=== PATIENT | female | born 1955 | race Asian ===

== ENCOUNTER 2017-05-03 08:05 | Day surgery (SDC) | payer MEDICARE ==
[~2017-05-03] VITALS: Ht 158.8 cm; Wt 43.6 kg
[~2017-05-03 08:05] MED LIST: LORazepam 2 MG/ML VIAL IVP PRN; SODIUM CHLORIDE 0.9% 1,000 ML IV ONE
[2017-05-03] MEDS ORDERED: FentaNYL CITRATE-PF 100 MCG/2 ML VIAL ONE (08:52)
[2017-05-03] MEDS ORDERED: MIDAZOLAM HCL 2 MG/2 ML VIAL ONE (08:52)
[2017-05-03 08:53] LABS: ALANINE AMINOTRANSFERASE 19 U/L (12-78); ALBUMIN 3.6 g/dL (3.4-5.0); ANION GAP 12 mmol/L (8-16); ASPARTATE AMINOTRANSFERASE 14 U/L (15-37); BILIRUBIN,TOTAL 0.5 mg/dL (0.1-1.0); CARBON DIOXIDE 26 mmol/L (22-29); CHLORIDE 103 mmol/L (98-107); CREATININE 0.73 mg/dL (0.60-1.30); GLOMERULAR FILTR. RATE CALC > 60 mL/min (>60); POTASSIUM 3.6 mmol/L (3.5-5.1); SODIUM SERUM 141 mmol/L (136-145); TOTAL PROTEIN, SERUM 7.1 g/dL (6.4-8.2); UREA NITROGEN, BLOOD 12 mg/dL (7-18)
[2017-05-03] MEDS ORDERED: LIDOCAINE HCL/PF 1% 30 ML VIAL ONE (08:53)
[2017-05-03] MEDS ORDERED: HEPARIN SODIUM 1000 UNITS/NS 500 ML ONE ×2 (08:53→11:05)
[2017-05-03] MEDS ORDERED: IODIXANOL 320 MG/ML 50 ML VIAL ONE ×3 (08:54→11:58)
[2017-05-03 08:59] LABS: BASOPHILS # (AUTO) 0.04 K/uL (0.00-0.20); BASOPHILS % (AUTO) 0.4 % (0.0-2.0); EOSINOPHILS # (AUTO) 0.02 K/uL (0.00-0.70); EOSINOPHILS % (AUTO) 0.22 % (1.0-6.0); HEMATOCRIT 37.6 % (36-46); HEMOGLOBIN 12.7 g/dL (12.0-16.0); LYMPHOCYTES # (AUTO) 1.4 K/uL (1.0-4.8); MEAN CORPUSCULAR HEMOGLOBIN 31.4 pg (26.0-34.0); MEAN CORPUSCULAR HGB CONC 33.7 G/dL (31.0-37.0); MEAN CORPUSCULAR VOLUME 93 fL (80-100); MONOCYTES # (AUTO) 0.7 K/uL (0.1-1.0); MONOCYTES % (AUTO) 6.1 % (2.0-9.0); NEUTROPHILS # (AUTO) 8.8 K/uL (1.8-7.7); NEUTROPHILS % (AUTO) 80.4 % (40.0-70.0); PLATELET COUNT (AUTO) 331 K/uL (150-450); RED BLOOD CELL COUNT(AUTO) 4.02 MIL/uL (4.00-5.20); RED CELL DISTRIBUTION WIDTH 12.4 % (11.5-14.5); WHITE BLOOD COUNT (AUTO) 10.9 K/uL (4.5-11.0)
[2017-05-03 09:15] VITALS: BP 121/60
[2017-05-03] MEDS ORDERED: NITROGLYCERIN 50 MG/D5% WATER 250 ML ONE (09:28)
[2017-05-03] MEDS ORDERED: VERAPAMIL HCL 2.5 MG/ML 2 ML VIAL ONE (09:28)
[2017-05-03] MEDS ORDERED: MAGNESIUM SULFATE 2 GM, MVI, ADULT NO.1 WITH VIT K 10 ML, THIAMINE HCL 100 MG, FOLIC AC... IV ONE ×5 (09:30)
[2017-05-03] MEDS ORDERED: VANCOMYCIN HCL 1 GM/D5% WATER 200 ML IV ONE (09:30)
[2017-05-03] MEDS ORDERED: HEPARIN SODIUM 1000 UNITS/NS 500 ML IV ONE (10:30)
[2017-05-03] MEDS ORDERED: MIDAZOLAM HCL 2 MG/2 ML VIAL IVP ONE (10:30)
[2017-05-03] MEDS ORDERED: IODIXANOL 320 MG/ML 50 ML VIAL IARTER ONE (10:30)
[2017-05-03] MEDS ORDERED: FentaNYL CITRATE-PF 100 MCG/2 ML VIAL IVP ONE (10:30)
[2017-05-03] MEDS ORDERED: LIDOCAINE HCL/PF 1% 30 ML VIAL INJ ONE (10:30)
[2017-05-03] MEDS ORDERED: HEPARIN SODIUM,PORCINE 1,000 UNITS/ML 10 ML VIAL IARTER ONE ×2 (10:45→11:00)
[2017-05-03] MEDS ORDERED: VERAPAMIL HCL 2.5 MG/ML 2 ML VIAL IARTER ONE (10:45)
[2017-05-03] MEDS ORDERED: NITROGLYCERIN/D5W 50 MG/250 ML IV BOTTLE IARTER ONE (10:45)
[2017-05-03 12:15] VITALS: BP 102/54
[2017-05-03] MEDS ORDERED: ACETYLCYSTEINE IV ONE (12:30)
[2017-05-03] MEDS ORDERED: HYDROCODONE/ACETAMINOPHEN 5-325 MG TABLET PO PRN (12:30)
[2017-05-03] MEDS ORDERED: DEXTROSE 5% IV ONE (12:30)
[2017-05-03] MEDS ORDERED: WATER IV ONE (12:30)
[2017-05-03] MEDS ORDERED: HYDROCODONE/ACETAMINOPHEN 5-325 MG TABLET ONE (12:53)
[2017-05-03] MEDS ORDERED: HYDROmorphone 2 MG/ML SYRINGE IVP ONE (13:45)
[2017-05-03] MEDS ORDERED: HYDROmorphone 2 MG/ML SYRINGE ONE ×2 (13:47→17:50)
[2017-05-03] MEDS ORDERED: PROMETHAZINE HCL 25 MG/ML VIAL ONE (17:50)
[2017-05-03] MEDS ORDERED: HYDROmorphone 2 MG/ML SYRINGE IM ONE (17:50)
[2017-05-03] MEDS ORDERED: PROMETHAZINE HCL 25 MG/ML VIAL IM ONE (17:50)
[2017-05-04] MEDS ORDERED: SODIUM CHLORIDE 0.9% 1,000 ML IV ONE (09:30)
[2017-05-04] MEDS ORDERED: LORazepam 2 MG/ML VIAL IVP PRN (09:30)
== END 2017-05-03 19:10 | disposition home or self-care (01) ==
LOC: SURGERY 08:05 → EDSTATUS 05-06 08:00
PROVIDERS: ATTEND Radiology Diagnostic Radiology
DX: C53.9 Malignant neoplasm of cervix uteri, unspecified (principal); E03.9 Hypothyroidism, unspecified; Z91.018 Allergy to other foods; Z88.8 Allergy status to other drugs, medicaments and biological substances
CPT/HCPCS: 36247; 36415; 37243; 75736; 76937; 80053; 85025; 99152; 99153; C1769; J0132; J1170; J1644; J2250; J2550; J3010; J3370; J3411; J3475; J3490 ×5; J7030; J7060; Q9967; 36245